=== PATIENT | male | born 1965 | race Caucasian/White ===

== ENCOUNTER 2023-08-24 16:32 | Emergency (ER) | payer OTHER ==
[~2023-08-24] VITALS: Ht 172.7 cm; Wt 103.0 kg
[2023-08-24 17:01] VITALS: BP 177/104; PULSE 100; RESP 18; TEMP 98; O2SAT 98
[2023-08-24] MEDS ORDERED: CLONIDINE HYDROCHLORIDE 0.1 MG TAB PO ONE (18:20)
[2023-08-24] MEDS ORDERED: atenoloL 25 MG TAB PO ONE (18:20)
[2023-08-24 18:34] LABS: BASOPHILS # (AUTO) 0.1 K/uL (0.00-0.22); BASOPHILS % (AUTO) 1.3 % (0.0-2.0); EOSINOPHILS # (AUTO) 0.4 K/uL (0-0.4); EOSINOPHILS % (AUTO) 4.2 % (0.0-4.0); HEMATOCRIT 47.3 % (36-52); HEMOGLOBIN 16.2 g/dL (12.0-18.0); LYMPHOCYTES # (AUTO) 2.5 K/uL (2.0-11.5); LYMPHOCYTES % (AUTO) 27.3 % (20.5-51.1); MEAN CORPUSCULAR HEMOGLOBIN 30 pg (27-31); MEAN CORPUSCULAR HGB CONC 34 g/dL (33-37); MEAN CORPUSCULAR VOLUME 88.3 fL (80-94); MONOCYTES # (AUTO) 0.8 K/uL (0.8-1.0); MONOCYTES % (AUTO) 9.4 % (1.7-9.3); NEUTROPHILS # (AUTO) 5.2 K/uL (1.8-7.7); NEUTROPHILS % (AUTO) 57.8 % (42.2-75.2); PLATELET COUNT (AUTO) 252 K/uL (140-450); RED BLOOD CELL COUNT(AUTO) 5.36 MIL/uL (4.20-6.10); RED CELL DISTRIBUTION WIDTH 14.3 % (11.6-13.7)
[2023-08-24 18:55] LABS: ALBUMIN 3.5 g/dL (3.4-5.0); ANION GAP 11.9 (8-16); CALCIUM 8.7 mg/dL (8.5-10.1); CARBON DIOXIDE 28.5 mmol/L (21-32); CREATININE 1.2 mg/dL (0.6-1.3); POTASSIUM 4.4 mmol/L (3.5-5.1); TOTAL BILIRUBIN 0.3 mg/dL (0.0-1.0); TOTAL PROTEIN, SERUM 7.1 g/dL (6.4-8.2)
[2023-08-24] MEDS ORDERED: ATOR40TA PO ×2 (21:08→22:02)
[2023-08-24] MEDS ORDERED: ATEN50TA8 PO ×2 (21:08→21:57)
[2023-08-24] MEDS ORDERED: CLOP75TA55 PO ×2 (21:08→22:02)
[2023-08-24] MEDS ORDERED: ASPI-1822 PO ×2 (21:08→21:58)
[2023-08-24] MEDS ORDERED: CLON-1170 PO ×2 (21:08→22:02)
[2023-08-24 22:00] VITALS: BP 150/90; PULSE 68; RESP 17; TEMP 98; O2SAT 98
== END 2023-08-24 22:00 | disposition home or self-care (01) ==
LOC: MED 16:32
DX: I10 Essential (primary) hypertension (principal); Z88.0 Allergy status to penicillin; Z88.2 Allergy status to sulfonamides; Z88.8 Allergy status to other drugs, medicaments and biological substances; Z79.899 Other long term (current) drug therapy
CPT/HCPCS: 36415; 71045; 80053; 83880; 84484; 85025; 93005; 99285; Q0092